=== PATIENT | female | born 1980 | race Caucasian/White ===

== ENCOUNTER 2019-01-11 16:12 | Emergency (ER) | payer BC, OTHER ==
[~2019-01-11] VITALS: Ht 172.7 cm; Wt 95.3 kg
[2019-01-11] MEDS ORDERED: RT-ALBUINH INH (18:17)
[2019-01-11] MEDS ORDERED: PRD20T PO (18:17)
--- NOTE | 2019-01-11 18:17 | ED Respiratory ---
General Chief Complaint: Respiratory Problems Stated Complaint: ASTHMA ATTACK Nursing Triage Note: Patient arrived by EMS with chief complaint of Asthma attack. Pt has past medical history of asthma. Onset was at 1400 when she was walking outside on break at work. 30 minutes prior to EMS arrival, she used her friend's albuterol inhaler. EMS report stated the patient was complaining of difficulty breathing and chest tightness. Pt has had additional stress recently. Pt is alert and oriented at arrival. Pt is 100% on Room air. Patient complains of chest tightness and head pain. Pain is 3/4 on pain scale, but wa a 9 when she could not catch her breath. Source: patient, EMS History of Present Illness Date Seen by Provider: Jan 11, 2019 Time Seen by Provider: 17:11 Initial Comments 38-year-old female presenting by EMS after having asthma attack at work today. She has history of asthma but does not have an inhaler currently. She has had asthma since she was younger but has not had problems for a few years now. She also has some anxiety but does not take medicine for it. She recently had been on steroids for a peanut allergy reaction. She just finished these over the weekend and was doing well but with the weather changes today she was feeling short of breath and having some cough at work. She had tried managing this by drinking coffee and caffeine as well as extra fluids. However this was not helping and this afternoon she started having increasing shortness of breath and cough which finally prompted her coworkers to call EMS because she was laying on the floor in the bathroom coughing. She denies any fever or chills. She follows with Dr. Peguero for medical care. Allergies and Home Medications Allergies Coded Allergies: peanut (Verified Allergy, Severe, Anaphylaxis, 01/11/19) Home Medications Albuterol Sulfate 6.7 Gm Hfa.aer.ad, 2 PUFF INH Q6H PRN for WHEEZING Prescribed by: SHADIA OH on 01/11/191816 Prednisone 20 Mg Tab, 20 MG PO DAILY Prescribed by: SHADIA OH on 01/11/191816 Patient Home Medication List Home Medication List Reviewed: Yes Review of Systems Review of Systems Constitutional: No chills, No fever EENTM: No hoarseness, No epistaxis, No nose congestion Respiratory: cough, short of breath; No stridor; wheezing Cardiovascular: no symptoms reported Gastrointestinal: no symptoms reported Genitourinary: no symptoms reported Musculoskeletal: no symptoms reported Skin: no symptoms reported Past Ybbmpbn-Qenfze-Mzfijc Hx Past Med/Social Hx: Reviewed Nursing Past Med/Soc Hx Patient Social History Alcohol Use: Occasionally Uses Recreational Drug Use: No Smoking Status: Never a Smoker 2nd Hand Smoke Exposure: No Recent Foreign Travel: No Contact w/Someone Who Travel: No Recent Infectious Disease Expo: No Recent Hopitalizations: No Physical Abuse: No Sexual Abuse: No Mistreated: No Fear: No Seasonal Allergies Seasonal Allergies: No Past Medical History Surgeries: Yes (bilateral feet) Thyroidectomy Respiratory: Yes Asthma Cardiac: No Neurological: No Genitourinary: No Gastrointestinal: No Musculoskeletal: No Endocrine: No HEENT: No Cancer: No Psychosocial: No Integumentary: No Blood Disorders: No Physical Exam Vital Signs - First Documented 01/11/19 16:15 Temp 98.0 Pulse 85 Resp 22 B/P (MAP) 149/77 (101) Pulse Ox 100 O2 Delivery Room Air Capillary Refill : Less Than 3 Seconds Height: 5'8.00" Weight: 210lbs. 0oz. [id number]; BMI Method:Stated General Appearance: WD/WN, no apparent distress HEENT: PERRL/EOMI, normal ENT inspection, pharynx normal Neck: non-tender, full range of motion, supple, normal inspection Respiratory: chest non-tender, lungs clear, normal breath sounds, no respiratory distress, no accessory muscle use Cardiovascular: normal peripheral pulses, regular rate, rhythm Gastrointestinal: normal bowel sounds, non tender, soft Extremities: normal range of motion, non-tender, normal inspection, no pedal edema, no calf tenderness, normal capillary refill Neurologic/Psychiatric: alert, normal mood/affect, oriented x 3 Skin: normal color, warm/dry Progress/Results/Core Measures Suspected Sepsis Recent Fever Within 48 Hours: No Infection Criteria Present: None New/Unexplained Altered Menta: No Sepsis Screen: No Definite Risk SIRS Temperature:98.0 Pulse: 85 Respiratory Rate: 22 Blood Pressure 149 /77 Mean: 101 Results/Orders Vital Signs/I&O 01/11/19 01/11/19 16:15 18:36 Temp 98.0 98.0 Pulse 85 82 Resp 22 18 B/P (MAP) 149/77 (101) 129/74 (92) Pulse Ox 100 100 O2 Delivery Room Air Capillary Refill : Less Than 3 Seconds Blood Pressure Mean: 101 Progress Note : Progress Note Her breathing has improved as she was transferred by EMS. She's remained stable and at 100% oxygen saturation here in the emergency department. She has no wheezing or increased respiratory effort here in the ED. She states that she feels a little short of breath still but again her exam is stable without wheezing or increased respiratory effort. Will discharge on an albuterol inhaler and steroid burst. Counseled to follow up with Dr. Peguero in the clinic for continued concerns. Departure Impression Primary Impression: Acute asthma exacerbation Qualified Codes: J45.21 - Mild intermittent asthma with (acute) exacerbation Additional Impression: Anxiety Disposition: HOME, SELF-CARE Condition: Stable Departure-Patient Inst. Decision time for Depature: 18:13 Referrals: NO,LOCAL PHYSICIAN (PCP) Primary Care Physician SULLY PEGUERO MD Patient Instructions: Anxiety, Adult (DC), Asthma, Adult (DC), How to Use Your Metered Dose Inhaler (Adults) Add. Discharge Instructions: Follow up with Dr. Peguero about your asthma and anxiety Use the inhaler to help with your shortness of breath and wheezing if needed. Use steroid/prednisone if having more trouble breathing over the weekend before you can see Dr. Peguero. All discharge instructions reviewed with patient and/or family. Voiced understanding. Scripts Prednisone (Prednisone) 20 Mg Tab 20 MG PO DAILY for 5 Days, #5 TAB 0 Refills Prov: SHADIA OH MD 01/11/19 Albuterol Sulfate (Proventil Hfa) 6.7 Gm Hfa.aer.ad 2 PUFF INH Q6H PRN for WHEEZING for 30 Days, #1 INHALER 0 Refills Prov: SHADIA OH MD 01/11/19 Work/School Note: Work Release Form Date Seen in the Emergency Department: Jan 11, 2019 Return to Work: Jan 12, 2019 Restrictions: No Restrictions SHADIA OH MD Jan 11, 2019 18:17
[2019-01-11 18:36] VITALS: BP 129/74
--- OUTSIDE RECORDS SUMMARY | 2019-01-12 00:49 | XMS REPORT | Continuity of Care Document ---
Author Organization Unknown Address Unknown Phone Unavailable Allergies There is no data. Medications There is no data. Problems There is no data. Procedures There is no data. Results Test Result Range [facility] - 11/15/18 16:24 GLUCOSE 93 mg/dL 65-99 UREA NITROGEN (BUN) 9 mg/dL 7-25 CREATININE 0.81 mg/dL 0.50-1.10 eGFR NON-AFR. IRANIAN 93 mL/min/1.73m2 > OR=60 eGFR 108 mL/min/1.73m2 > OR=60 BUN/CREATININE RATIO NOT APPLICABLE (calc) 6-22 SODIUM 139 mmol/L 135-146 POTASSIUM 4.2 mmol/L 3.5-5.3 CHLORIDE 104 mmol/L 98-110 CARBON DIOXIDE 27 mmol/L 20-32 CALCIUM 9.3 mg/dL 8.6-10.2 PROTEIN, TOTAL 6.9 g/dL 6.1-8.1 ALBUMIN 4.2 g/dL 3.6-5.1 GLOBULIN 2.7 g/dL (calc) 1.9-3.7 ALBUMIN/GLOBULIN RATIO 1.6 (calc) 1.0-2.5 BILIRUBIN, TOTAL 0.4 mg/dL 0.2-1.2 ALKALINE PHOSPHATASE 84 U/L 33-115 AST 20 U/L 10-30 ALT 22 U/L 6-29 TSH - 11/15/18 16:24 TSH 0.43 mIU/L NRG Encounters ACCT No. Visit Date/Time Discharge Status Pt. Type Provider Facility Loc./Unit Complaint [id number] 11/13/2018 16:15:00 11/13/2018 23:59:59 [facility] [id number] 11/15/2018 16:20:00 Document Registration
== END 2019-01-11 18:35 | disposition home or self-care (01) ==
LOC: ER FS 16:13
DX: J45.901 Unspecified asthma with (acute) exacerbation (principal); F41.9 Anxiety disorder, unspecified; Z91.14 Patient's other noncompliance with medication regimen
CPT/HCPCS: 99283

== ENCOUNTER → 2020-01-15 | Outpatient (CLI) | payer BC ==
[~2020-01-15] MED LIST: PRD20T PO; RT-ALBUINH INH
== END ==
LOC: LAB FS 16:25
PROVIDERS: ATTEND Family Medicine
DX: E03.9 Hypothyroidism, unspecified (principal)
CPT/HCPCS: 36415; 84443

== ENCOUNTER → 2020-02-26 | Outpatient (CLI) | payer BC | LOC: LAB FS 16:19 | PROVIDERS: ATTEND Family Medicine | DX: E03.9 Hypothyroidism, unspecified (principal) | CPT/HCPCS: 36415; 84443 ==

== ENCOUNTER → 2020-11-14 | Outpatient (CLI) | payer BC ==
[2020-11-14 08:47] LABS: SODIUM 138 MMOL/L (135-145)
[2020-11-14 08:48] LABS: ALANINE AMINOTRANSFERASE 13 U/L (0-55); ALBUMIN 3.8 GM/DL (3.2-4.5); ALKALINE PHOSPHATASE 105 U/L (40-136); BILIRUBIN,TOTAL 0.4 MG/DL (0.1-1.0); BUN/CREATININE RATIO 17; CALCIUM 9.1 MG/DL (8.5-10.1); CARBON DIOXIDE 24 MMOL/L (21-32); CHLORIDE 105 MMOL/L (98-107); CREATININE SERUM 0.81 MG/DL (0.60-1.30); GFR ESTIMATED > 60; GLUCOSE 105 MG/DL (70-105); POTASSIUM 3.9 MMOL/L (3.6-5.0); TOTAL PROTEIN 6.7 GM/DL (6.4-8.2)
[2020-11-14 14:40] LABS: CHOLESTEROL 179 MG/DL (< 200); HDL CHOLESTEROL 60 MG/DL (40-60); TRIGLYCERIDES 121 MG/DL (<150); VLDL CHOLESTEROL 24 MG/DL (5-40)
== END ==
LOC: LAB FS 07:18
PROVIDERS: ATTEND Family Medicine
DX: Z00.00 Encounter for general adult medical examination without abnormal findings (principal); E03.9 Hypothyroidism, unspecified
CPT/HCPCS: 36415; 80053; 80061; 84443

== ENCOUNTER 2021-01-24 09:46 | Emergency (ER) | payer OTHER, BC ==
[~2021-01-24] VITALS: Ht 177.8 cm; Wt 94.5 kg
--- OUTSIDE RECORDS SUMMARY | 2021-01-24 09:52 | XMS REPORT | Clinical Summary ---
Author Author [facility] Organization [facility] Address Unknown Phone Unavailable Care Team Providers Care Travel Registered Nurse Pacu Name Role Phone Unknown, Unknown Md Unavailable Unavailable Wilber Chin MD Unavailable Rochelle Cochran RN Unavailable Unavailable Scott Farr RN Unavailable Unavailable Source Comments Some departments are not documenting in the electronic medical record. If you d o not see the information that you expected, contact Release of Information in [facility] [employer] Information Management department at [phone] for further assistan ce in locating additional records.[facility] Allergies Comments Active Allergy Reactions Severity Noted Date Peanut SWOLLEN 05/14/2014 TONGUE, EDEMA swelling around neck, not anaphylaxis Penicillins HIVES, EDEMA 05/07/2014 Medications End Date Status Medication Sig Dispensed Refills Start Date Active cetirizine (ZYRTEC) 10 mg Take 10 mg by 0 tablet mouth as Needed. Active vitamins, multiple tablet Take 1 Tab by 0 mouth daily. Active norgestimate-ethinyl Take 1 Tab by 0 estradiol(+) (TRI-LINYAH) mouth daily. tablet Active calcium carbonate Take 1 Tab by 90 Tab 3 (OS-SHARON) 1250 mg tablet mouth three 4 times daily. Active acetaminophen-codeine Take 1 Tab by 60 Tab 1 (TYLENOL #3) 300-30 mg mouth every 4 4 tablet hours as needed for Pain. Active levothyroxine (SYNTHROID) Take 1 Tab by 30 Tab 1 125 mcg tablet mouth daily. 5 Active Problems Problem Noted Date Multinodular goiter 05/23/2014 Thyroid nodule 05/07/2014 Surgical History Surgery Date Site/Laterality Comments FOOT SURGERY Medical History Medical History Date Comments Seasonal allergies Family History Medical History Relation Name Comments Migraines Brother Arthritis-rheumatoid Father Depression Father Migraines Father Stroke Father Arthritis-rheumatoid Maternal Aunt Migraines Maternal Aunt Thyroid Disease Maternal Aunt Stroke Maternal Grandfather Arthritis-osteo Maternal Grandmother Thyroid Disease Maternal Grandmother Diabetes Maternal Uncle Stroke Maternal Uncle Arthritis-osteo Mother Depression Mother High Cholesterol Mother Migraines Mother Thyroid Disease Mother Arthritis-osteo Paternal Grandmother Asthma Sister Migraines Sister Relation Name Status Comments Brother Alive Father Alive Maternal Aunt Alive Maternal Grandfather Maternal Grandmother Alive Maternal Uncle Mother Alive Paternal Grandmother Alive Sister Alive Social History Date Tobacco Use Types Packs/Day Years Used Never Smoker Comments Alcohol Use Standard Drinks/Week Yes 1 (1 standard drink = 0.6 o z pure alcohol) Sex Assigned at Date Recorded Not on file Last Filed Vital Signs Reading Time Taken Comments Vital Sign 128/84 06/11/2014 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 Blood Pressure 96 06/11/2014 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 Pulse 37 C (98.6 F) 06/11/2014 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 Temperature 20 06/11/2014 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 Respiratory Rate 100% 06/11/2014 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 Oxygen Saturation - - Inhaled Oxygen Concentration 82.6 kg (182 lb 3.2 oz) 06/11/2014 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 Weight 174.6 cm (5' 8.74") 06/11/2014 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 Height 27.11 06/11/2014 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 Body Mass Index Plan of Treatment Health Maintenance Due Date Last Done Comments HIV SCREENING 1997 DTAP/TDAP VACCINES ( - 2000 Tdap) HEPATITIS C SCREENING 2000 PHYSICAL (COMPREHENSIVE) 2000 EXAM CERVICAL CANCER SCREENING 2003 INFLUENZA VACCINE 03/06/2021 Results Not on filefrom Last 3 Months Insurance Type Payer Benefit Subscriber ID Effective Phone Address Plan / Dates Group PPO [facility] [id number] 2013-P HEALTH-AET resent NA PPO/MC [phone] Advance Directives Patient Systems Librarian Explanation Type Date Recorded Advance 04/30/2014 4:50 PM Directive/DPOA Date Inactivated Comments Code Status Date Activated 05/24/2014 5:39 PM Full Code 05/23/2014 2:44 PM Provider has discussed Code Status No, discussion no t w/Patient or Family? necessary based on Dx
[2021-01-24] MEDS ORDERED: KETOROLAC 60 MG/2 ML VIAL IM STA (10:18)
[2021-01-24] MEDS ORDERED: ORPHENADRINE 60 MG/2 ML (NORFLEX) AMP (ED ONLY) IM STA (10:18)
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
[2021-01-24 11:50] VITALS: BP 120/59
== END 2021-01-24 11:54 | disposition home or self-care (01) ==
LOC: EDUNIT# 09:46 → ER FS 09:48
DX: S16.1XXA Strain of muscle, fascia and tendon at neck level, initial encounter (principal); S80.01XA Contusion of right knee, initial encounter; S90.01XA Contusion of right ankle, initial encounter; S30.0XXA Contusion of lower back and pelvis, initial encounter; S20.212A Contusion of left front wall of thorax, initial encounter; G44.209 Tension-type headache, unspecified, not intractable; J45.909 Unspecified asthma, uncomplicated; Z79.52 Long term (current) use of systemic steroids; V89.2XXA Person injured in unspecified motor-vehicle accident, traffic, initial encounter
CPT/HCPCS: 70450; 71046; 72125; 73502; 73562; 73610

== ENCOUNTER → 2021-05-28 | Outpatient (CLI) | payer BC ==
[2021-05-28 07:54] LABS: ALBUMIN 4.1 GM/DL (3.2-4.5); BILIRUBIN,TOTAL 0.7 MG/DL (0.1-1.0); CREATININE SERUM 0.81 MG/DL (0.60-1.30); TOTAL PROTEIN 7.5 GM/DL (6.4-8.2)
== END ==
LOC: LAB FS 07:02
PROVIDERS: ATTEND Family Medicine
DX: E03.9 Hypothyroidism, unspecified (principal)
CPT/HCPCS: 36415; 80053; 80061; 84443

== ENCOUNTER → 2021-07-15 | Outpatient (CLI) | payer BC | LOC: LAB FS 16:44 | PROVIDERS: ATTEND Family Medicine | DX: E03.9 Hypothyroidism, unspecified (principal) | CPT/HCPCS: 36415; 84443 ==

== ENCOUNTER → 2021-08-28 | Outpatient (CLI) | payer BC ==
[2021-08-28 12:26] LABS: BASOPHILS % (AUTO) 0 % (0-10); EOSINOPHILS % (AUTO) 0 % (0-10); HEMATOCRIT 42 % (35-52); HEMOGLOBIN 13.9 g/dL (11.5-16.0); LYMPHOCYTES # (AUTO) 3.2 10^3/uL (1.0-4.0); LYMPHOCYTES % (AUTO) 34 % (12-44); MEAN CORPUSCULAR HEMOGLOBIN 29 pg (25-34); MEAN CORPUSCULAR HGB CONC 33 g/dL (32-36); MEAN CORPUSCULAR VOLUME 87 fL (80-99); MEAN PLATELET VOLUME 9.2 fL (9.0-12.2); MONOCYTES # (AUTO) 0.6 10^3/uL (0.0-1.0); MONOCYTES % (AUTO) 7 % (0-12); NEUTROPHILS # (AUTO) 5.4 10^3/uL (1.8-7.8); NEUTROPHILS % (AUTO) 58 % (42-75); PLATELET COUNT 393 10^3/uL (130-400); WHITE BLOOD COUNT 9.2 10^3/uL (4.3-11.0)
[2021-08-28 13:02] LABS: BILIRUBIN,TOTAL 0.5 MG/DL (0.1-1.0); CALCIUM 9.4 MG/DL (8.5-10.1); CREATININE SERUM 0.8 MG/DL (0.60-1.30); POTASSIUM 4.1 MMOL/L (3.6-5.0)
[2021-08-28 13:03] LABS: ALBUMIN 4.5 GM/DL (3.2-4.5); TOTAL PROTEIN 7.6 GM/DL (6.4-8.2)
== END ==
LOC: LAB FS 12:03
PROVIDERS: ATTEND Family Medicine
DX: R10.31 Right lower quadrant pain (principal)
CPT/HCPCS: 36415; 80053; 83690; 85025

== ENCOUNTER → 2021-09-04 | Outpatient (CLI) | payer BC | LOC: LAB FS 16:38 | PROVIDERS: ATTEND Family Medicine | DX: E03.9 Hypothyroidism, unspecified (principal) | CPT/HCPCS: 36415; 84443 ==

== ENCOUNTER → 2021-10-07 | Outpatient (CLI) | payer BC | LOC: LAB FS 16:30 | PROVIDERS: ATTEND Family Medicine | DX: Z91.018 Allergy to other foods (principal) | CPT/HCPCS: 36415; 86003 ==